=== PATIENT | male | born 1975 | race Caucasian/White ===

== ENCOUNTER 2018-09-21 17:35 | Emergency (ER) | payer OTHER ==
[~2018-09-21] VITALS: Ht 188 cm; Wt 122.5 kg
[2018-09-21] MEDS ORDERED: NORCO 7.5-3251 EACH PO (18:14)
[2018-09-21] MEDS ORDERED: SENNA-DOCUSATE1 EAC1 PO (18:14)
[2018-09-21] MEDS ORDERED: INDOMETHACIN 2525 MG PO (18:14)
== END 2018-09-21 18:50 | disposition home or self-care (01) ==
LOC: ER 17:35
DX: M10.071 Idiopathic gout, right ankle and foot (principal)

== ENCOUNTER → 2019-03-13 | Outpatient (CLI) | payer OTHER ==
[~2019-03-13] MED LIST: INDOMETHACIN 2525 MG PO; NORCO 7.5-3251 EACH PO; SENNA-DOCUSATE1 EAC1 PO
== END ==
LOC: CAT 15:03
DX: Z13.6 Encounter for screening for cardiovascular disorders (principal); E78.00 Pure hypercholesterolemia, unspecified; I25.10 Atherosclerotic heart disease of native coronary artery without angina pectoris